=== PATIENT | female | born 1990 | race Two or more races ===

== ENCOUNTER 2025-05-12 11:36 | Day surgery (SDC) | payer MEDICAID ==
[2025-05-07 11:58] LABS: Urine Protein, UAD TRACE (Negative)
[2025-05-07 11:59] LABS: Hematocrit 36.5 % (36.0-46.0); Hemoglobin 11.7 g/dL (12.2-16.2); Mean Corpuscular Hemoglobin 27.6 pg (28.0-32.0); Mean Corpuscular Volume 86.1 fL (80.0-100.0); Nucleated Red Blood Cells % 0.1 %
[2025-05-07 12:21] LABS: Alanine Aminotransferase 10 U/L (7-40); Alkaline Phosphatase 67 U/L (46-116); Anion Gap 9 (5-15); BUN/Creatinine Ratio 8.6 (10.0-20.0); Calcium 9.6 mg/dL (8.7-10.4); Carbon Dioxide 27 mmol/L (20-31); Chloride 105 mmol/L (98-107); Glucose 103 mg/dL (74-106); INR 1.01 (0.9-1.15); Partial Thromboplastin Time 31.3 SEC (24.5-34.5); Potassium 4.4 mmol/L (3.5-5.1); Prothrombin Time 10.7 sec (9.3-11.8); Sodium 141 mmol/L (136-145)
[2025-05-07 12:22] LABS: Albumin 4.7 g/dL (3.2-4.8); Bilirubin, Total 0.4 mg/dL (0.2-1.0)
[2025-05-07 12:25] LABS: Blood Urea Nitrogen 8 mg/dL (9-23); Total Protein 8.4 g/dL (5.7-8.2)
[~2025-05-12] VITALS: Ht 170.2 cm; Wt 122.0 kg
[~2025-05-12 11:36] MED LIST: AMLO1TAB23 PO; CHOL20004 PO; METO-159 PO; OLME40TA76 PO; SEMA2INJ3 SC
[2025-05-12] MEDS ORDERED: ceFAZolin 2 GM/D5W50ml 0 ML IV ONE (11:52)
--- NOTE | 2025-05-12 12:50 | DVHOP2 ---
Operative Report - 2 Report Details Date: 05/12/25 Preop Diagnosis: 1. Right foot plantar fasciitis 2. Right foot bone spur 3. Right foot pain Postop Diagnosis: Same as preop Surgeon: Lydna Ambriz MD Anesthesiologist: See anesthesia Anesthesia: General Consent: The patient was informed of the risks and benefits of the procedure. These include but are not limited to complications of anesthesia, postoperative infection, incomplete relief of symptoms, recurrence of symptoms, damage to blood vessels, nerves and tendons, deep venous thrombosis, pulmonary embolism and possible need for repeat surgery in the future. Complications: None Estimated Blood Loss: Minimal Fluids: See anesthesia Findings: Consistent with diagnosis Indications for Surgery: Worsening right foot pain Name of Procedure Performed 1. Right foot tenex plantar fasciotomy (92769) 2. Right foot calcaneal bone spur excision (45773) Procedure Details Procedure Details: PRE-PROCEDURE INFORMATION: In the pre-op holding area, the extremity to be operated on was clearly marked and the patient verified correct laterality of the marking. The patient was transferred to the OR table and placed in a supine position. A timeout was performed in which identification of the correct patient, procedure, location, and materials was done. The right foot and leg were prepped and draped in normal sterile fashion. DESCRIPTION OF PROCEDURE: Attention was directed to the right medial aspect of the heel. Using a 15. Blade, a small stab incision was made. Using a hemostat the incision was deepened to the level of the plantar fascia and bone. Using a Tenex device, and ultrasound, the device was used to break up the scar tissue. Using a power rasp, the calcaneal bone spur was excised. After adequate debridement of the plantar fascia, it was noted on ultrasound that the thickness of the plantar fascia had improved. All surgical wounds were irrigated copiously with saline and closed in layers with the aforementioned suture material. A dry sterile dressing was placed on the surgical extremity. The patient was placed in a boot POSTOPERATIVE INFORMATION: The patient tolerated the above noted procedure and anesthesia well and was transferred to the PACU with vital signs stable, and vascular status intact with capillary refill intact to all digits. Postoperative instructions reviewed in detail with the patient with written instructions provided. Patient will return to clinic in approximately 10-14 days for first postoperative visit. Patient has the number of the clinic and was instructed to call prior to that time should any problems, questions, or concerns arise. Condition Good Disposition Home Visit Coding Podiatry Date of Service if different f: May 12, 2025 Billing Provider: LYNDA AMBRIZ DPM Podiatry Common Visit Codes: PROCEDURE ONLY LYNDA AMBRIZ DPM May 12, 2025 12:50
[2025-05-12] MEDS ORDERED: GLYCOPYRROLATE 0.2 MG/ML 1ML VIAL ONE (13:29)
[2025-05-12] MEDS ORDERED: PROPOFOL 10 MG/ML 20 ML IV ONE (13:29)
[2025-05-12] MEDS ORDERED: KETAMINE 50mg/ML 1ml syringe ONE (13:29)
[2025-05-12] MEDS ORDERED: ONDANSETRON HCL 4 MG/2 ML VIAL ONE ×2 (13:29→14:51)
[2025-05-12] MEDS: CLINDAMYCIN 600MG IV 50 ML IV ONE (14:25)
[2025-05-12] MEDS: LIDOCAINE 1% HCL (LOCAL ANESTH.) INJ 20ML MDV ONE (14:34)
[2025-05-12 14:42] VITALS: PULSE 74; RESP 22; TEMP 97.6; O2SAT 98
[2025-05-12] MEDS: ONDANSETRON HCL 4 MG/2 ML VIAL IV ONE (14:55)
[2025-05-12] MEDS ORDERED: fentaNYL CITRATE 100 MCG/2 ML VL IV PRN (15:00)
[2025-05-12] MEDS ORDERED: ONDANSETRON HCL 4 MG/2 ML VIAL IV PRN (15:00)
[2025-05-12] MEDS ORDERED: NALOXONE HCL 0.4 MG/ML VIAL IV PRN (15:00)
[2025-05-12] MEDS ORDERED: FLUMAZENIL 0.1 MG/ML INJ 10ML MDV IV PRN (15:00)
[2025-05-12] MEDS ORDERED: HYDROmorphone HCL 2 MG/ML VL/or syr IV PRN (15:00)
[2025-05-12] MEDS ORDERED: hydrALAZINE HCL 20 MG/ML VL IV PRN (15:00)
[2025-05-12 15:25] VITALS: BP 107/67; PULSE 77; RESP 16; O2SAT 98
== END 2025-05-12 15:40 | disposition home or self-care (01) ==
LOC: SUR 11:36
PROVIDERS: ATTEND Podiatrist
DX: M72.2 Plantar fascial fibromatosis (principal); M77.8 Other enthesopathies, not elsewhere classified; I10 Essential (primary) hypertension; E11.9 Type 2 diabetes mellitus without complications; E28.2 Polycystic ovarian syndrome; K21.9 Gastro-esophageal reflux disease without esophagitis; E66.09 Other obesity due to excess calories; Z68.41 Body mass index [BMI] 40.0-44.9, adult; Z79.899 Other long term (current) drug therapy; Z86.2 Personal history of diseases of the blood and blood-forming organs and certain disorders involving the immune mechanism; Z90.710 Acquired absence of both cervix and uterus; Z88.0 Allergy status to penicillin; Z88.1 Allergy status to other antibiotic agents; Z88.8 Allergy status to other drugs, medicaments and biological substances
CPT/HCPCS: 28899; 36415; 80053; 81001; 81025; 82962; 85025; 85610; 85730; J1100; J2003; J2405; J2704; J3490